=== PATIENT | female | born 2000 | race Caucasian/White ===

== ENCOUNTER 2020-03-06 06:30 | Emergency (ER) | payer BC, MEDICAID ==
[~2020-03-06] VITALS: Ht 154.9 cm; Wt 55.3 kg
[2020-03-06 06:30] VITALS: BP 144/93
--- NOTE | 2020-03-06 06:30 | NUR ---
PT BIB [facility], PREBOOK. TAKEN TO CHAIR A
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
--- NOTE | 2020-03-06 06:38 | NUR ---
ERMD EVALUATING PT.
[2020-03-06 06:52] VITALS: BP 138/82
--- NOTE | 2020-03-06 06:52 | NUR ---
Patient discharged with v/s stable. Written and verbal after care instructions given and explained. Patient verbalized understanding. In custody with [facility]. All questions addressed prior to discharge. Advised to follow up with PMD.
--- NOTE | 2020-03-06 06:52 | NUR ---
PATIENT BIB [facility]. PATIENT EXAMINED BY . PATIENT MEDICALLY CLEARED AND RELEASED IN CUSTODY IN STABLE CONDITION. ORIGINAL PRE-BOOK FORM GIVEN TO OFFICER MAHI #[id number]. NO NURSING INTERVENTION NEEDED.
== END 2020-03-06 06:52 ==
LOC: MED 06:30
DX: F10.129 Alcohol abuse with intoxication, unspecified (principal); V89.2XXA Person injured in unspecified motor-vehicle accident, traffic, initial encounter; Y93.89 Activity, other specified; Y92.89 Other specified places as the place of occurrence of the external cause; Y99.8 Other external cause status
CPT/HCPCS: 99283